=== PATIENT | female | born 2000 | race Caucasian/White ===

== ENCOUNTER 2024-05-17 08:05 | Emergency (ER) | payer OTHER ==
[2024-05-17] MEDS ORDERED: Ondansetron PF 4 MG/2 ML Vial ONE (08:47)
[2024-05-17] MEDS ORDERED: Morphine 4 MG/ML VIAL ONE ×2 (08:47→09:11)
[2024-05-17 09:13] LABS: BHCG - Serum Negative (NEGATIVE); Pregs Control Background? CLEAR/WHITE (CLR/WHITE); Pregs Control Bar Appear? YES (CONTROL BAR)
[2024-05-17 09:28] LABS: ALT (SGPT) 11 U/L (8-55); AST (SGOT) 20 U/L (5-34); Albumin 4.2 g/dL (3.5-5.0); Alkaline Phosphatase 57 U/L (40-110); Anion Gap 17 mmol/L (10-20); BUN (Urea Nitrogen) 9 mg/dL (7.0-18.7); Bilirubin, Total 0.8 mg/dL (0.2-1.2); Calc. Creatinine Clearance 0 mL/min (70-130); Calcium 9.8 mg/dL (7.8-10.44); Carbon Dioxide 18 mmol/L (22-29); Chloride 104 mmol/L (98-107); Estimated GFR 127; Globulin 3.1 g/dL (2.4-3.5); Glucose 118 mg/dL (70-105); Lipase 14 U/L (8-78); Potassium 3.6 mmol/L (3.5-5.1); Protein, Total 7.3 g/dL (6.0-8.3); Sodium 135 mmol/L (136-145)
[2024-05-17 09:29] LABS: #Basophils 0.06 10x3/uL (0.0-0.2); #Eosinophils 0.07 10x3/uL (0.0-0.5); #Monocytes 0.73 10x3/uL (0.0-1.1); %Basophils 0.7 % (0.0-2.0); %Eosinophils 0.8 % (0.0-6.0); %Lymphocytes 21.8 % (18.0-47.0); %Monocytes 8.6 % (0.0-10.0); %Neutrophils 67.3 % (40.0-75.0); Hematocrit 39.6 % (34.9-44.5); Hemoglobin 14.5 g/dL (12.0-15.5); Mean Corpuscular HGB CONC 36.6 g/dL (32.0-36.0); Mean Corpuscular Hemoglobin 30.4 pg (27.0-33.0); Mean Platelet Volume 9.3 fL (7.4-10.4); Platelet Count 238 10x3/uL (150-450); RBC Distribution Width 11.4 % (11.5-14.5); Red Blood Cell (RBC) Count 4.77 10x6/uL (3.90-5.03); White Blood Cell (WBC) Count 8.5 10x3/uL (3.5-10.5)
[2024-05-17 09:32] LABS: Troponin I Less than 0.010 ng/mL (< 0.028)
[2024-05-17 10:10] LABS: Large Platelets SLIGHT (None Seen); Platelet Adequacy Comment Platelets Normal
[2024-05-17] MEDS ORDERED: Iopamidol 300 61% 100 ML VIAL FS ONE (10:19)
[2024-05-17] MEDS ORDERED: Promethazine HCl 12.5 MG in Sodium Chloride 0.9% 50 ML IVPB SCH (10:45)
== END 2024-05-17 13:03 | disposition home or self-care (01) ==
LOC: CSHERS 08:05
DX: R11.2 Nausea with vomiting, unspecified (principal); Z55.0 Illiteracy and low-level literacy
CPT/HCPCS: 70450; 71260; 72125; 74177; 80053; 83690; 84484; 84703; 85025; 96374; 96375; J2272; J2405; J2550; Q9967